=== PATIENT | female | born 1935 | race Caucasian/White ===

== ENCOUNTER → 2017-05-16 | Outpatient (CLI) | payer OTHER ==
[~2017-05-16] MED LIST: ALEVE220 MG PO; ASPIRIN EC81 M1; CALCIUM 500 +1 EAC5 PO; CRESTOR5 MG; ELIQUIS2.5 MG PO; FISH OIL 1,001000 M2 PO; K-DUR 20 MEQ T20 MEQ PO; LOSARTAN-HCTZ1 EAC2 PO; MOTION RELIEF25 MG PO; MULTAQ400 MG; NORCO 5-325 TA1 EACH PO; OMEGA-3100 MG; SIMVASTATIN40 MG PO; VERAPAMIL E.R240 M1 PO; VITAMIN D1000 UNI1 PO
--- NOTE | ~2017-05-16 | 2DMMODE ---
[facility] [address] [place] [address] 2 D/M-MODE ECHOCARDIOGRAM Name: CRISTÓBAL OWUSUJD Room #: REG [facility]#: [id number] Admission: 05/16/17 Attend Phys: Frank Clark Discharge: Date of : 31 Date of Service: 05/16/17 1207 Report #: [id number] THIS REPORT FOR: //name// APPROVED REPORT Study performed: 05/16/2017 11:52:50 EXAM: Comprehensive 2D, Doppler, and color-flow Echocardiogram Patient Location: Echo lab Status: routine BSA: 1.64 HR: 84 bpm BP: 160/79 mmHg Rhythm: Atrial Fibrillation Other Information Study Quality: Adequate Indications CAD Pre-cancer treatment. Hx: AFIB, CABG 2D Dimensions RVDd: 40.47 mm LVEF(%): 59.99 (>50%) IVSd: 10.19 (7-11mm) LVOT Diam: 20.48 (18-24mm) LVDd: 43.61 mm PWd: 9.53 (7-11mm) Ascending Ao: 28.16 (22-36mm) LVDs: 29.77 (25-40mm) Aortic Root: 28.37 mm IVC: 14.00 mm TAPSE: 1.20 (<1.7) Pink's LVEF: 59.99 % Volumes Left Atrial Volume (Systole) Single Plane 4CH: 57.75 mL Single Plane 2CH: 61.30 mL LA ESV Index: 39.00 mL/m2 Aortic Valve AoV Peak Raimundo.: 0.86 m/s AO Peak Gr.: 2.95 mmHg LVOT Max P.20 mmHg LVOT Max V: 0.74 m/s EDINSON Vmax: 2.85 cm2 Mitral Valve [facility] [place] [address] 2 D/M-MODE ECHOCARDIOGRAM Name: JOHANN OWUSU Room #: [facility]#: [id number] Admission: 05/16/17 Attend Phys: Frank Clark Discharge: Date of : 31 Date of Service: 05/16/17 1207 Report #: [id number] MV Decel. Time: 125.98 ms MV E Max Raimundo.: 0.94 m/s IVRT: 45.21 ms Pulmonary Valve PV Peak Raimundo.: 0.84 m/s PV Peak Gr.: 2.85 mmHg Tricuspid Valve TR Peak Raimundo.: 2.39 m/s RAP Estimate: 5.00 mmHg TR Peak Gr.: 24.82 mmHg PA Pressure: 29.00 mmHg Left Ventricle The left ventricle is normal size. There is normal left ventricular wall thickness. The left ventricular systolic function is normal. LVEF is 50-55%. This study is not technically sufficient to allow evaluation of the LV diastolic function due to atrial fibrillation. Right Ventricle Right ventricle is dilated. Right ventricle is hypokinetic. Atria Left atrium is dilated. Right atrium is dilated. Aortic Valve The Aortic valve is mildly sclerotic. No aortic regurgitation is present. There is no aortic valvular stenosis. Mitral Valve Mild mitral annular calcification. Moderate mitral regurgitation. No evidence of mitral valve stenosis. Tricuspid Valve The tricuspid valve is normal in structure. Severe tricuspid regurgitation. Pulmonic Valve The pulmonary valve is normal in structure. Mild pulmonic regurgitation. Great Vessels The aortic root is normal in size. The ascending aorta is normal in size. IVC is normal in size and collapses >50% with inspiration. Estimated PAP 29 mmHg. [facility] [address] [place] [address] 2 D/M-MODE ECHOCARDIOGRAM Name: JOHANN OWUSU Room #: [facility]#: [id number] Admission: 05/16/17 Attend Phys: Frank Clark Discharge: Date of : 31 Date of Service: 05/16/17 1207 Report #: [id number] Pericardium There is no pericardial effusion. <Conclusion> The left ventricle is normal size. LVEF is 50-55%. Right ventricle is dilated. Right ventricle is hypokinetic. The Aortic valve is mildly sclerotic. There is no aortic valvular stenosis. Mild mitral annular calcification. Moderate mitral regurgitation. The tricuspid valve is normal in structure. Severe tricuspid regurgitation. The pulmonary valve is normal in structure. Mild pulmonic regurgitation. There is no pericardial effusion. <ELECTRONICALLY SIGNED> By: Adolfo Leone MD 05/16/171206 06 06 Adolfo Leone MD /INF
== END ==
LOC: CV 10:36
DX: I08.1 Rheumatic disorders of both mitral and tricuspid valves (principal); I25.10 Atherosclerotic heart disease of native coronary artery without angina pectoris; C50.812 Malignant neoplasm of overlapping sites of left female breast; I48.2 Chronic atrial fibrillation; E78.5 Hyperlipidemia, unspecified; Z17.0 Estrogen receptor positive status [ER+]; Z95.1 Presence of aortocoronary bypass graft

== ENCOUNTER → 2019-07-29 | Outpatient (CLI) | payer OTHER | LOC: SJCVC 10:58 | DX: I48.19 Other persistent atrial fibrillation (principal); R94.31 Abnormal electrocardiogram [ECG] [EKG]; I48.0 Paroxysmal atrial fibrillation; I25.10 Atherosclerotic heart disease of native coronary artery without angina pectoris; I10 Essential (primary) hypertension; E78.5 Hyperlipidemia, unspecified; Z79.899 Other long term (current) drug therapy; Z82.49 Family history of ischemic heart disease and other diseases of the circulatory system; Z82.3 Family history of stroke ==

== ENCOUNTER 2021-02-06 08:20 | Inpatient (IN) | payer OTHER ==
[~2021-02-06] VITALS: Ht 160 cm; Wt 65.5 kg
[2021-02-06 08:33] VITALS: BP 132/77
[2021-02-06 09:02] LABS: BASOPHILS 0.6 % (0.0-2.0); EOSINOPHILS 0.1 % (0.0-3.0); HEMATOCRIT 43.4 % (37.0-47.0); HEMOGLOBIN 14.6 gm/dL (12.0-15.0); LYMPHOCYTES 5.3 % (24.0-44.0); MCH 32.1 pg (26.0-34.0); MCHC 33.6 g/dL (28.0-37.0); MCV 95.3 fL (80.0-100.0); MONOCYTES 6.3 % (1.0-8.0); PLATELET COUNT 157 thou/uL (150-400); POLYS 87.7 % (36.0-66.0); RBC 4.55 mil/uL (4.20-5.00)
[2021-02-06 09:14] LABS: POTASSIUM 3.7 mmol/L (3.5-5.1)
[2021-02-06 09:17] LABS: APTT 25.7 Seconds (24.5-32.8); PROTIME 10.9 Seconds (10.5-12.1)
[2021-02-06] MEDS ORDERED: ARIMIDEX1 MG PO (10:45)
[2021-02-06] MEDS ORDERED: MAGNESIUM250 M1 PO (10:46)
[2021-02-06] MEDS ORDERED: SIMVASTATIN80 MG PO (10:47)
--- NOTE | 2021-02-06 11:56 | NUR ---
CALLED FLOOR AT THIS TIME. RN WAS IN THE PROCESS OF D/C PT, STATED SHE WILL CALL BACK
[2021-02-06 12:19] VITALS: BP 136/74
[2021-02-06 12:35] VITALS: BP 148/77
[2021-02-06] MEDS ORDERED: PROLIA60 MG/1 ML SUBQ (13:29)
[2021-02-06 15:00] VITALS: BP 120/52
[2021-02-06 19:22] VITALS: BP 128/65
[2021-02-07] VITALS (8 sets, daily range): BP systolic 124–148; BP diastolic 43–86
--- NOTE | 2021-02-07 01:45 | NUR ---
ASSESSMENT COMPLETED. PLEASANT LADY. MAKES NEEDS KNOWN. VSS. ON / FOR COMFORT.WALKS TO THE BATHROOM WITH SBA. ENCOURAGED TO USE I/S.
--- NOTE | 2021-02-07 12:47 | EKG ---
[address] [place] [address] ELECTROCARDIOGRAM REPORT Name: JOHANN OWUSU Jackson Room #: 214-P [facility] IN .R.#: [id number] Admission: 02/06/21 Attend Phys: Silas Chappell MD Discharge: Date of : 33 Report #: [id number] [facility] ED Test Date: 2021-02-06 Test Time: 09:53:19 Pat Name: JOHANN OWUSU Department: Room: 214 Gender: F Quality Assurance Supervisor Final: ABDULLAHI : 1935 Requested By: Kenia Harris Order Number: [id number] MD: Jerson Flores Measurements Intervals [place] Rate: 82 P: RI: QRS: 3 QRSD: 100 T: 150 QT: 377 QTc: 441 Interpretive Statements Atrial fibrillation Nonspecific ST and T wave abnormality Compared to ECG 10/29/2012 09:12:46 Sinus rhythm no longer present Electronically Signed On 02-07-2021 12:47:05 CDT by Jerson Flores [email or web address] <ELECTRONICALLY SIGNED> By: Jerson Flores MD, [facility] 02/07/21 1247 0953 0953 Jerson Flores MD, FAC /EPI
--- NOTE | 2021-02-07 12:47 | EKG ---
[address] [address] ELECTROCARDIOGRAM REPORT Name: JOHANN OWUSU Jackson Room #: 214-[facility] IN M.R.#: [id number] Admission: 02/06/21 Attend Phys: Silas Chappell MD Discharge: Date of : 33 Report #: [id number] [facility] ED Test Date: 2021-02-06 Test Time: 09:53:19 Pat Name: JOHANN OWUSU Department: Room: 214 P Gender: F Income Tax Consultant: ABDULLAHI : 1935 Requested By: Kenia Harris Order Number: [id number] MD: Jerson Flores Measurements Intervals [place] Rate: 82 P: AL: QRS: 3 QRSD: 100 T: 150 QT: 377 QTc: 441 Interpretive Statements Atrial fibrillation Nonspecific ST and T wave abnormality Compared to ECG 10/29/2012 09:12:46 Sinus rhythm no longer present Electronically Signed On 02-07-2021 12:46:44 CDT by Jerson Flores [email or web address] <ELECTRONICALLY SIGNED> By: Jerson Flores MD, [facility] 02/07/21 1246 0953 0953 Jerson Flores MD, FACC /EPI
[2021-02-08 04:45] VITALS: BP 132/58; BP 142/58
[2021-02-08 08:15] VITALS: BP 162/90
--- NOTE | 2021-02-08 11:15 | 2DMMODE ---
[facility] [place] [address] 2 D/M-MODE ECHOCARDIOGRAM Name: JOHANN OWUSU Room #: 214-P ADM IN M.R.#: [id number] Admission: 02/06/21 Attend Phys: Silas Chappell MD Discharge: Date of : 31 Report #: [id number] THIS REPORT FOR: cc: Amarilis Man MD, Stany A. MD Lammoglia, Francisco J. MD ~ APPROVED REPORT Study performed: 02/08/2021 10:12:09 EXAM: Comprehensive 2D, Doppler, and color-flow Echocardiogram Patient Location: Bedside Room #: 214 Status: routine BSA: 1.70 HR: 84 bpm BP: 162/90 mmHg Rhythm: Atrial Fibrillation Other Information Study Quality: Good Indications Pre-Chemo Atrial Fibrillation CAD Syncope Hypertension/HDD 2D Dimensions RVDd: 37.19 mm IVSd: 9.63 (7-11mm) LVOT Diam: 17.65 (18-24mm) LVDd: 42.32 mm PWd: 8.90 (7-11mm) Ascending Ao: 26.51 (22-36mm) LVDs: 31.53 (25-40mm) Left Atrium: 41.61 (27-40mm) Aortic Root: 29.27 mm IVC: 20.00 mm Volumes Left Atrial Volume (Systole) Single Plane 4CH: 80.24 mL Single Plane 2CH: 52.50 mL LA ESV Index: 41.00 mL/m2 Aortic Valve [facility] [address] [place] [address] 2 D/M-MODE ECHOCARDIOGRAM Name: JOHANN OWUSU Room #: 214-P [facility] IN [facility]#: [id number] Admission: 02/06/21 Attend Phys: Silas Chappell MD Discharge: Date of : 33 Report #: [id number] AoV Peak Raimundo.: 1.14 m/s AO Peak Gr.: 5.23 mmHg LVOT Max P.75 mmHg LVOT Max V: 0.83 m/s EDINSON Vmax: 1.77 cm2 Pulmonary Valve PV Peak Raimundo.: 0.85 m/s PV Peak Gr.: 2.90 mmHg Tricuspid Valve TR Peak Raimundo.: 3.09 m/s TR Peak Gr.: 38.25 mmHg PA Pressure: 48.00 mmHg Left Ventricle The left ventricle is normal size. There is normal LV segmental wall motion. There is normal left ventricular wall thickness. The left ventricular systolic function is normal. The left ventricular ejection fraction is within the normal range. LVEF is 55-60%. This study is not technically sufficient to allow evaluation of the LV diastolic function due to atrial fibrillation. Right Ventricle The right ventricle is normal size. The right ventricular systolic function is normal. Atria The left atrium size is normal. The right atrium size is normal. Aortic Valve The aortic valve is normal in structure. No aortic regurgitation is present. There is no aortic valvular stenosis. Mitral Valve The mitral valve is normal in structure. Mild mitral regurgitation. No evidence of mitral valve stenosis. Tricuspid Valve The tricuspid valve is normal in structure. There is moderate tricuspid regurgitation. Estimated PAP 48 mmHg. There is moderate pulmonary hypertension. Pulmonic Valve The pulmonary valve is normal in structure. Trace pulmonic regurgitation. [facility] [address] [place] [place] [address] 2 D/M-MODE ECHOCARDIOGRAM Name: JOHANN OWUSU Jackson Room #: 214-P [facility] IN [facility]#: [id number] Admission: 02/06/21 Attend Phys: Silas Chappell MD Discharge: Date of : 33 Report #: [id number] Great Vessels The aortic root is normal in size. IVC is dilated and collapses <50% with inspiration. Pericardium There is no pericardial effusion. <Conclusion> The left ventricle is normal size. LVEF is 55-60%. The left atrium size is normal. The aortic valve is normal in structure. The mitral valve is normal in structure. Mild mitral regurgitation. The tricuspid valve is normal in structure. There is moderate tricuspid regurgitation. Estimated PAP 48 mmHg. There is moderate pulmonary hypertension. The pulmonary valve is normal in structure. Trace pulmonic regurgitation. The aortic root is normal in size. There is no pericardial effusion. <ELECTRONICALLY SIGNED> By: Adolfo Leone MD 02/08/21 1114 1114 1114 Adolfo Leone MD /INF
--- NOTE | 2021-02-08 14:30 | NUR ---
Assumed care of pt this AM. Pt is A&O x4, on RA. AFIB on the monitor. Denies any chest pain. Pt standby assist to toilet, ambulates better with walker per PT. Lidocaine patch on lt back/side for pain. Pt up to chair today w/ daughter visiting. Will continue to assess pt needs throughout rest of shift.
--- NOTE | 2021-02-08 15:42 | NUR ---
SNF referral faxed and called to [facility] of OP. They will check her ins plan to see if they are in network. The pt does not feel she is able to return directly home at nv. [facility] may have a bed available tomorrow. Will need ins auth.
--- NOTE | 2021-02-08 15:45 | NUR ---
Met with patient and dtr at bedside. Patient admits with pneumothorx, rib fx post fall. Patient reports she lives with spouse who has dementia. Patient reports he is safe at home without her at this time. Dtr reports she will bring food and look after him. Patient reports all needs on one level in home. Approx 2-3 steps to enter home. She reports she drives, spouse does not drive. She does all cooking, cleaning for the home. She was independent with adls officer captain. She reports cont pain and weakness. She and dtr interested in post acute care. Gave skilled [employer] list. Reviewed list and referral to [facility] for review. Second choice either [facility] or [facility]. [facility] following.
[2021-02-08 16:20] VITALS: BP 150/102
[2021-02-08 20:15] VITALS: BP 147/77
[2021-02-09 04:45] VITALS: BP 139/57
--- NOTE | 2021-02-09 06:29 | NUR ---
PATIENTS CARES WERE ASSUMED AT SHIFT CHANGE.PATIENT WAS ASSESSED AND MEDS WERE PASSED. PATIENT HAD AN UNEVENTFUL NIGHT THIS SHIFT AND LAST. PATIENT WANT TO WORK WITH PT IN HOPES TO GET HOME QUICKER. ROUNDS WERE DONE. THE BED ALARM IS ON THE BED IS IN A LOW AND LOCKED POSITION
[2021-02-09 08:17] VITALS: BP 175/85
[2021-02-09 15:20] VITALS: BP 157/83
--- NOTE | 2021-02-09 16:37 | NUR ---
[facility] with no bed until possibly monday. Met with patient and dtr. they report patient doing better and feels she could dc home with home health care. Reviewed home health care. They have no preference. Referral to [facility] home health care. Zuri newsome to meet with patient in am.
--- NOTE | 2021-02-09 17:57 | NUR ---
ASSUMED CARE SHIFT CHANGE. VSS. HR ELEVATED WITH ACTIVITY- PHYSICIANS AWARE. O2 SATS WNL RA. CXR THIS SHIFT REFER TO RESULTS. DTR AT BEDSIDE UPDATED ON POC. PT WORKED WITH PHYS THERAPY AND OT EDNA WELL. PLAN FOR POSSIBLE DC IN AM WITH HOME HEALTH. DENIES NEEDS CURRENTLY. CONT POC WILL PASS REPORT TO VANDANA BAXTER.
[2021-02-09 19:39] VITALS: BP 139/62
--- NOTE | 2021-02-10 01:25 | NUR ---
ASSUMED PT CARE AT 1900, ASSESSMENTS CHARTED, AFIB ON TELE, HR ELEVATED UPTO 160S WITH ACTIVITY, CONTROLLED AT REST, C/O RIB PAIN, TRAMADOL GIVEN WITH RELIEF, PT ABLE TO HAVE A BM THIS SHIFT, NO NEEDS AT THIS TIME, PLAN FOR DC IN TODAY WITH H&H, WILL CONTINUE TO FOLLOW PER POC
[2021-02-10 04:30] VITALS: BP 140/64
[2021-02-10 06:48] VITALS: BP 156/68
[2021-02-10 07:15] VITALS: BP 156/76
--- NOTE | 2021-02-10 12:57 | NUR ---
spoke with dtr. Patient not to discharge today due to HR. Gardenia dhillon [facility] met with patient and dtr. Spoke with Yue with [facility] patient will need a walker for home. Patient will script for walker.
[2021-02-10 16:40] VITALS: BP 144/46
--- NOTE | 2021-02-10 16:42 | LINQ ---
[facility] [address] [place] [address] LINQ PROCEDURE REPORT Name: JOHANN OWUSU Room #: 214-P [facility] IN ..#: [id number] Admission: 02/06/21 Attend Phys: Silas Chappell MD Discharge: Date of : 33 Report #: [id number] THIS REPORT FOR: cc: Amarilis Man MD, Stany A. MD Lammoglia, Francisco J. MD ~ APPROVED REPORT Patient Location: In-Patient Room #: Stress Nurse: LINQ PLACEMENT 02/09/2021 MODEL # [id number] SERIAL # [id number] AQUATIC PERFORMER: [employer] IMPLANT DATE: 02/09/2021 PLACEMENT: Vishal Kay SQ Status: Implant VT: 330ms 16 beats BEENA: 2000ms 8 beats ASYSTOLE: 3.0 s Indications: Syncope Brief description procedure: After informed sent was obtained assessment was brought to the cardiac catheterization laboratory prepped and hold. Left chest was prepped and draped in usual sterile manner. Using 1% lidocaine and a 25-gauge needle a small wheal was raised along the proposed incision site. Utilizing a 25-gauge spinal needle the proposed insertion tract was anesthetized. An 11 blade was then used to make a small incision and with sharp and blunt dissection a pocket tract was developed. Utilizing the deployment tool the device was then deployed without difficulty. Subcutaneous tissue was sewn with 2 simple erupted sutures and the skin was sewn with 3-0 Vicryl in subcuticular stitch. Dermabond Steri-Strips 4 x 4 OpSite were utilized. Recorded P waves were satisfactory and in range. There were no complications patient tolerated procedure well [facility] [address] [place] [address] LINQ PROCEDURE REPORT Name: JOHANN OWUSU Room #: 214-P [facility] IN [facility]#: [id number] Admission: 02/06/21 Attend Phys: Silas Chappell MD Discharge: Date of : 33 Report #: [id number] Conclusion 1. Successful insertion of a implantable loop recorder 2. Proceed per standard post insertion protocol <ELECTRONICALLY SIGNED> By: Adolfo Leone MD 02/10/211641 41 41 Adolfo Leone MD /INF
--- NOTE | 2021-02-10 17:17 | NUR ---
ASSESSMENT CHARTED - MEDS PER AUG - GIVEN TORODOL X 1 DOSE FOR CO'S OF PAIN WITH GOOD RELIEF. NO CO'S OF NASUEA. UP IN ROOM TO BATHROOM WITH STBY ASSIST. SEEN BY OPHYS AND OCC THERAPY THIS SHIFT - HR ELEVATED WHEN UP THIS AM - GIVEN TOPROL PT AND 5 MGS IV HR HAS REMAINED BELOW 120 WITH AMBULATION. EDNA DIET AND FLUIDS. NO CO'S AT THE PRESENT TIME.
[2021-02-10 17:40] VITALS: BP 144/46
[2021-02-10 20:08] VITALS: BP 142/67
--- NOTE | 2021-02-11 03:26 | NUR ---
assumed pt care at 1900, awake, alert abd oriented, afib with hr controlled in the 80s, upto 120s with activity, denies pain this shift, meds given as per aug, plan to dc home today
[2021-02-11 04:41] VITALS: BP 149/66
[2021-02-11] MEDS ORDERED: VERAPAMIL E.R240 M1 PO (08:00)
[2021-02-11] MEDS ORDERED: METOPROLOL SUCC25 M1 PO (08:00)
[2021-02-11 08:09] VITALS: BP 143/96
[2021-02-11 11:00] VITALS: BP 144/46
--- NOTE | 2021-02-11 11:02 | NUR ---
Dc home today with HH. Zuri Jeronimo has confirmed and will see the pt tomorrow. Provider [facility] has issued a rwalker to the pt for dc home today. No other needs noted.
[2021-02-11 12:19] VITALS: BP 133/74
[2021-02-11] MEDS ORDERED: TRAMADOL 50 MG50 MG PO (12:32)
[2021-02-11] MEDS ORDERED: MIRALAX17 GM PO (12:32)
[2021-02-11] MEDS ORDERED: LIDOPATCH1 EACH TRANSDERM (12:32)
[2021-02-11] MEDS ORDERED: COLACE 100 MG100 MG PO (12:32)
[2021-02-11 13:22] VITALS: BP 144/46
--- NOTE | 2021-02-11 14:13 | NUR ---
PT STATED VERBAL UNDERSTANDING OF THE DISCHARGE PROCESS AT BEDSIDE, tELE BOX AND iv REMOVED, NO CONCERNS AT DICHARGED TIME.
== END 2021-02-11 15:40 | disposition home health service (06) | DRG 260 ==
LOC: ER 08:20 → EROBS 11:20 → 2N 11:20
PROVIDERS: Emergency Medicine; ADMIT Surgery; ATTEND Surgery
PROC: 0JH632Z Insertion of Monitoring Device into Chest Subcutaneous Tissue and Fascia, Percutaneous Approach (ICD-10-PCS; principal; 2021-02-09)
DX: I48.21 Permanent atrial fibrillation (principal); S27.2XXA Traumatic hemopneumothorax, initial encounter; J96.01 Acute respiratory failure with hypoxia; S22.32XA Fracture of one rib, left side, initial encounter for closed fracture; S27.329A Contusion of lung, unspecified, initial encounter; I95.1 Orthostatic hypotension; Z20.822 Contact with and (suspected) exposure to COVID-19; I10 Essential (primary) hypertension; E78.5 Hyperlipidemia, unspecified; I25.10 Atherosclerotic heart disease of native coronary artery without angina pectoris; I08.1 Rheumatic disorders of both mitral and tricuspid valves; Z79.01 Long term (current) use of anticoagulants; Z85.3 Personal history of malignant neoplasm of breast; Z98.42 Cataract extraction status, left eye; Z98.41 Cataract extraction status, right eye; Z90.12 Acquired absence of left breast and nipple; Z95.1 Presence of aortocoronary bypass graft; W18.39XA Other fall on same level, initial encounter; Y93.89 Activity, other specified; Y92.89 Other specified places as the place of occurrence of the external cause; Y99.8 Other external cause status
CPT/HCPCS: 10081

== ENCOUNTER 2021-05-21 12:52 | Inpatient (IN) | payer OTHER ==
[~2021-05-21] VITALS: Ht 152.4 cm; Wt 63.5 kg
[~2021-05-21 12:52] MED LIST changes: +ARIMIDEX1 MG PO; +COLACE 100 MG100 MG PO; +LIDOPATCH1 EACH TRANSDERM; +MAGNESIUM250 M1 PO; +METOPROLOL SUCC25 M1 PO; +MIRALAX17 GM PO; +PROLIA60 MG/1 ML SUBQ; +SIMVASTATIN80 MG PO; +TRAMADOL 50 MG50 MG PO
[2021-05-21 12:53] VITALS: BP 115/46
[2021-05-21 14:29] LABS: ABSOLUTE NEUTROPHILS 5.7 thou/uL (1.4-8.2); BASOPHILS 0.5 % (0.0-2.0); EOSINOPHILS 0.5 % (0.0-3.0); HEMATOCRIT 42.4 % (37.0-47.0); HEMOGLOBIN 13.9 gm/dL (12.0-15.0); LYMPHOCYTES 9.2 % (24.0-44.0); MCH 31.1 pg (26.0-34.0); MCHC 32.7 g/dL (28.0-37.0); MCV 95.3 fL (80.0-100.0); MONOCYTES 6.9 % (1.0-8.0); PLATELET COUNT 191 thou/uL (150-400); POLYS 82.9 % (36.0-66.0); RBC 4.45 mil/uL (4.20-5.00); RDW 14.2 % (10.5-14.5); WBC 6.9 thou/uL (4.0-11.0)
[2021-05-21 17:54] LABS: URINE BILIRUBIN NEGATIVE (Negative); URINE BLOOD TRACE (Negative); URINE CLARITY CLEAR; URINE COLOR YELLOW; URINE GLUCOSE-RANDOM* NEGATIVE (Negative); URINE KETONES TRACE (Negative); URINE NITRITE-REFLEX NEGATIVE (Negative); URINE PROTEIN (DIPSTICK) NEGATIVE (Negative); URINE UROBILINOGEN 0.2 E.U./dl (0.2-1.0)
[2021-05-21 18:09] LABS: URINE LEUKOCYTES-REFLEX 1+ (Negative)
[2021-05-21 18:18] LABS: SQUAMOUS 0-3 Few /LPF (0-3)
[2021-05-21 18:19] LABS: BACTERIA-REFLEX 1-9 Few /HPF (None Seen); CASTS None Seen /LPF (None Seen); CRYSTALS None Seen /LPF (None Seen); URINE RBC 1-2 Rare /HPF (NONE SEEN); URINE WBC-REFLEX 0-5 Rare /HPF (0-5)
[2021-05-22 03:37] VITALS: BP 153/65
[2021-05-22 05:59] LABS: HEMATOCRIT 44.2 % (37.0-47.0); HEMOGLOBIN 14.4 gm/dL (12.0-15.0); MCH 30.7 pg (26.0-34.0); MCHC 32.5 g/dL (28.0-37.0); MCV 94.5 fL (80.0-100.0); RBC 4.68 mil/uL (4.20-5.00); RDW 13.6 % (10.5-14.5); WBC 5.4 thou/uL (4.0-11.0)
[2021-05-22 06:28] LABS: CALCIUM 8.9 mg/dL (8.5-10.1); CREATININE 0.8 mg/dL (0.6-1.0)
--- NOTE | 2021-05-22 11:56 | EKG ---
[address] [place] [address] ELECTROCARDIOGRAM REPORT Name: CRISTÓBAL OWUSUJD Paz Room #: 170-2 ADM IN M.R.#: [id number] Admission: 05/21/21 Attend Phys: Robert Tovar Discharge: Date of : 33 Report #: [id number] [facility] ED Test Date: 2021-05-21 Test Time: 13:03:34 Pat Name: JOHANN OWUSU Department: Room: 170 Gender: F Cleaning Manager: ALFREDO : 1935 Requested By: Zach England Order Number: [id number] MD: Jerson Flores Measurements Intervals [place] Rate: 52 P: 0 FL: QRS: 48 QRSD: 100 T: 171 QT: 534 QTc: 497 Interpretive Statements Atrial flutter versus atrial tachycardia with a controlled ventricular response RSR' in V1 or V2, probably normal variant Nonspecific ST and T wave abnormality Borderline prolonged QT interval Compared to ECG 02/06/2021 09:53:19 Heart rate has slowed Electronically Signed On 05-22-2021 11:56:40 PRESS CLIPPINGS CUTTER AND PASTER by Jerson Flores [email or web address] <ELECTRONICALLY SIGNED> By: Jerson Flores MD, FAC 05/22/21 1156 1303 1303 Jerson Flores MD, FAC /EPI
[2021-05-22 15:39] VITALS: BP 138/50
[2021-05-22 16:38] VITALS: BP 142/52
--- NOTE | 2021-05-22 17:51 | NUR ---
[age] YEAR OLD FEMALE ADMITTED TO [facility] ROOM 448. PT WAS BROUGHT INTO THE ER PER DAUGHTER DUE TO INCREASE SOA. PT ALERT AND ORIENTED TIMES THREE WITH PERIODS OF CONFUSION. VSS. PT DENIES PAIN AT THIS TIME. PT UP TO RESTROOM WITH STANDBY ASSIST. PT DAUGHTER AT BEDSIDE DURING ADMISSION ASSESSMENT. WILL CONTINUE TO MONITOR.
[2021-05-22 20:43] VITALS: BP 156/82
--- NOTE | 2021-05-23 03:27 | NUR ---
ASSUMED CARE OF PT AT 1900. PT AT START OF SHIFT WAS A/O X4 WITH SOME FORGETFULNESS. THE NIGHT PROGRESSED PT BECAME MORE CONFUSED AND IS CURRENTLY A/O X1 AND IS IMPULSIVE AND AT TIMES AGRESSIVE. SERGING MACHINE OPERATOR NOTIFIED. ORDERS GIVEN. MOVED PT CLOSER TO NURSES STATION FOR SAFETY PRECAUTION WITH A MORE SENSITIVE BED ALARM SET. CALLED DAUGHTER THIS NIGHT AT 2200 TO INFORM HER OF THE MOVE. NO ANSWER. PT REMAINS ON RA. VSS. SOB WITH EXERTION. SBA WITH WALKER TO THE BR. MEDICATIONS GIVEN PER AUG. PRN ANXIETY MEDICATION GIVEN DIRECTED. FALL PRECAUTIONS IN PLACE WITH FREQUENT CHECKS. CALL LIGHT IS WITHIN REACH.
[2021-05-23 07:17] VITALS: BP 153/82
[2021-05-23 08:51] LABS: CALCIUM 8.5 mg/dL (8.5-10.1); CREATININE 0.8 mg/dL (0.6-1.0)
--- NOTE | 2021-05-23 10:29 | EKG ---
[place] [address] [employer] [employer] [place] [address] ELECTROCARDIOGRAM REPORT Name: JOHANN OWUSU Room #: 435- ADM IN M.R.#: [id number] Admission: 05/21/21 Attend Phys: Robert Tovar Discharge: Date of : 31 Report #: [id number] [facility] Test Date: 2021-05-23 Test Time: 08:00:43 Pat Name: JOHANN OWUSU Department: Room: [facility] Gender: F Book Author: AGNES : 1935 Requested By: Jerson Flores Order Number: [id number] MD: Jerson Flores Measurements Intervals [place] Rate: 57 P: 14 IA: 176 QRS: 29 QRSD: 99 T: 192 QT: 604 QTc: 589 Interpretive Statements Sinus bradycardia Probable left atrial enlargement LVH with secondary repolarization abnormality Prolonged QT interval Compared to ECG 05/21/2021 13:03:34 Sinus rhythm has replaced probable atrial flutter Electronically Signed On 05-23-2021 10:29:25 SHIPPING ORDER CLERK by Jerson Flores [email or web address] <ELECTRONICALLY SIGNED> By: Jerson Flores MD, [facility] 05/23/21 1029 9 9 Jerson Flores MD, [facility] /EPI
--- NOTE | 2021-05-23 11:34 | NUR ---
A/O X 1 SELF. ROOM AIR, STAND BY WITH WALKER, RIGHT FOREARM IV SALINE LOCKED, CONT B/B, AFIB ON TELE, BILATERAL LUNGS COARSE, NO PAIN. THORACENTESIS TOMORROW. DAUGHTER AT BEDSIDE. BED ALARM ON. HAS TRIED TO GET OUT OF BED ON HER OWN A FEW TIMES.
[2021-05-23 15:54] VITALS: BP 143/63
[2021-05-23 19:05] VITALS: BP 104/40
[2021-05-24 07:12] VITALS: BP 132/68
[2021-05-24 08:45] LABS: APTT 27.9 Seconds (24.5-32.8); INR 1.05; PROTIME 11.4 Seconds (10.5-12.1)
--- NOTE | 2021-05-24 09:02 | EKG ---
[address] [place] [address] ELECTROCARDIOGRAM REPORT Name: FRANCOISECRISTÓBALJD Paz Room #: 435- ADM IN M.R.#: [id number] Admission: 05/21/21 Attend Phys: Robert Tovar Discharge: Date of : 31 Report #: [id number] [facility] Test Date: 2021-05-24 Test Time: 08:55:12 Pat Name: JOHANN OWUSU Department: Room: [facility] Gender: F Entry Level Account Representative: PRASANNA : 1935 Requested By: Jerson Flores Order Number: [id number] MD: Jerson Flores Measurements Intervals [place] Rate: 53 P: 20 HI: 149 QRS: 9 QRSD: 94 T: 103 QT: 631 QTc: 593 Interpretive Statements Sinus bradycardia Nonspecific T abnormalities Prolonged QT interval Compared to ECG 05/23/2021 08:00:43 No significant change was found Electronically Signed On 05-24-2021 9:02:28 HOTBED TRANSFER OPERATOR by Jerson Flores [email or web address] <ELECTRONICALLY SIGNED> By: Jerson Flores MD, [facility] 05/24/21901 0855 4 Jerson Flores MD, FACC /EPI
--- NOTE | 2021-05-24 09:06 | NUR ---
ASSUMED PT CARE THIS AM. PT IS ALERT & ORIENTED X3. PT HAS IV SITE ON RFA SALINE LOCKED AND L LIMB ALERT. PT IS ON ROOM AIR. PT HAS TELE MONITOR ON. PT HAS BEEN NPO THIS AM. CALLED PT DAUGHTER/DPOA FOR A TELEPHONE CONSENT FOR THORACENTESIS TODAY AND ORDERED LAB COAGULATION PER PROTOCOL AND ORDERED. CONFIRMED WITH DR AGUIRRE THIS MORNING WELL. PT DAUGHTER AT THE BEDSIDE. WILL CONTINUE TO MONITOR PT. FOLLOW POC.
--- NOTE | 2021-05-24 09:17 | NUR ---
86-year-old female came to ED with complaints of SOA. had a fall in January where she suffered left rib fractures and a small hemothorax and small pneumothorax. HX of past medical history of coronary artery disease, fall, hemothorax, pneumothorax, atrial fibrillation, hypertension, and hyperlipidemia. CT shows a small left pleural effusion. Chart review. Cm visited with Haseeb and her daughter Ahsan at bedside. Intro to cm and rip. Prior to hospital she been living alone since her Ha . Main level home with laundry on main level. No stairs. Has a walker. Do not drive much. Daughter brings over food and just must warm it up. Possible will stay at my daughters for a while be for going home or my daughter will stay with me. Going to start looking into Jail per daughter Ahsan. Cm left senior blue book for resources outside the hospital. Going for thoracentesis today.
[2021-05-24 14:19] LABS: BF NUCLEATED CELLS 289 /mm3; BF RBC 517 /mm3
[2021-05-24 14:23] LABS: CLARITY CLEAR; COLOR YELLOW; TOTAL VOLUME 60 mL
--- NOTE | 2021-05-24 14:48 | 2DMMODE ---
[facility] [place] [address] 2 D/M-MODE ECHOCARDIOGRAM Name: JOHANN OWUSU Jackson Room #: 435-P ADM IN M.R.#: [id number] Admission: 05/21/21 Attend Phys: Robert Tovar Discharge: Date of : 31 Report #: [id number] THIS REPORT FOR: cc: Amarilis Man MD, Stany A. MD Lundgren, Craig H. MD [facility] ~ APPROVED REPORT Study performed: 05/24/2021 11:33:07 EXAM: Comprehensive 2D, Doppler, and color-flow Echocardiogram Patient Location: Bedside Room #: [facility] Status: routine BSA: 1.60 HR: 45 bpm BP: 132/68 mmHg Rhythm: Atrial Fibrillation Other Information Study Quality: Good Indications Pulmonary Hypertension Atrial Fibrillation Dyspnea Hypertension/HDD 2D Dimensions IVSd: 8.76 (7-11mm) LVOT Diam: 18.88 (18-24mm) LVDd: 45.34 mm PWd: 8.77 (7-11mm) Ascending Ao: 28.24 (22-36mm) LVDs: 32.36 (25-40mm) Left Atrium: 41.59 (27-40mm) Aortic Root: 29.07 mm IVC: 20.00 mm Tricuspid Valve TR Peak Raimundo.: 3.08 m/s TR Peak Gr.: 37.95 mmHg PA Pressure: 48.00 mmHg Left Ventricle The left ventricle is normal size. There is normal LV segmental wall motion. There is normal left ventricular wall thickness. The left [facility] [address] [place] [address] 2 D/M-MODE ECHOCARDIOGRAM Name: JOHANN OWUSU Jackson Room #: 435-P ADM IN M.R.#: [id number] Admission: 05/21/21 Attend Phys: Robert Jim Discharge: Date of : 31 Report #: [id number] ventricular systolic function is normal. The left ventricular ejection fraction is within the normal range. LVEF is 50-55%. This study is not technically sufficient to allow evaluation of the LV diastolic function due to atrial fibrillation. Right Ventricle Right ventricle is dilated. Right ventricular systolic function is grossly normal. Atria Left atrium is dilated. Right atrium is dilated. Aortic Valve The aortic valve is mildly calcified, trileaflet. No aortic regurgitation is present. There is no aortic valvular stenosis. Mitral Valve The mitral valve is normal in structure. Mild to moderate mitral regurgitation. No evidence of mitral valve stenosis. Tricuspid Valve The tricuspid valve is normal in structure. Severe tricuspid regurgitation. Estimated pulmonary artery pressure of 48mmHg. Pulmonic Valve The pulmonary valve is normal in structure. Great Vessels The aortic root is normal in size. IVC is dilated and collapses >50% with inspiration. Pericardium There is no pericardial effusion. <Conclusion> The left ventricular systolic function is normal. There is normal LV segmental wall motion. LVEF is 50-55%. Right atrium and ventricle are dilated. The aortic valve is mildly calcified, trileaflet. No aortic regurgitation or stenosis The mitral valve is normal in structure. Mild to moderate mitral regurgitation. Severe tricuspid regurgitation. Estimated pulmonary artery pressure [facility] [address] [place] [address] 2 D/M-MODE ECHOCARDIOGRAM Name: JOHANN OWUSU Room #: 435-P [facility] IN .R.#: [id number] Admission: 05/21/21 Attend Phys: Robert Jim Discharge: Date of : 31 Report #: [id number] of 48mmHg. No pericardial effusion <ELECTRONICALLY SIGNED> By: Jerson Flores MD, [facility] 05/24/21 1448 144 Jerson Flores MD, FACC /INF
[2021-05-24 15:13] LABS: BF MACROPHAGE 18 %; BF NEUTROPHILS 14 %; SOURCE THORACENTESIS
[2021-05-24 16:52] VITALS: BP 119/64
[2021-05-24 18:00] LABS: HEMATOCRIT 50.1 % (37.0-47.0); MCHC 32.7 g/dL (28.0-37.0); MCV 94.7 fL (80.0-100.0); RBC 5.29 mil/uL (4.20-5.00); WBC 9.5 thou/uL (4.0-11.0)
[2021-05-24 18:03] LABS: HEMOGLOBIN 16.4 gm/dL (12.0-15.0)
[2021-05-24 18:08] LABS: CALCIUM 8.6 mg/dL (8.5-10.1); CREATININE 0.9 mg/dL (0.6-1.0); MAGNESIUM 1.7 mg/dL (1.8-2.4)
[2021-05-24 20:18] VITALS: BP 176/70
--- NOTE | 2021-05-24 23:58 | NUR ---
PT ALERT AND ORIENTED X 1, CONFUSED. 02 ON AT 2L PER NC CONT. RIGHT BACK BANDAID INTACT WITH SMALL AMT BLOOD NOTED. PT SOB WITH ACTIVITY. PT DENIES PAIN OR DISCOMFORT. BED ALARM ON FOR SAFETY. PT APPEARS TO BE SLEEPING ON HOURLY ROUNDS.
[2021-05-25 01:52] VITALS: BP 152/64
[2021-05-25 08:18] VITALS: BP 133/53
--- NOTE | 2021-05-25 10:13 | NUR ---
ASSUMED PT CARE THIS AM. HOLD AMIODARONE AND METOPROLOL THIS AM PER CARDIOLOGY AND INFORMED ABOUT HR. PT HAS IV SITE ON RFA SALINE LOCKED AND L LIMB ALERT. PT IS ON ROOM AIR AND PRN 2L FOR COMFORT AND SOB. PER CARDIOLOGY STANDPOINT OK FOR DC AND JUST TO FOLLOW UP. WILL CONTINUE TO MONITOR PT. FOLLOW POC.
[2021-05-25] MEDS ORDERED: DEMADEX20 MG PO (11:55)
[2021-05-25] MEDS ORDERED: VERAPAMIL ER240 M1 PO (11:55)
[2021-05-25 12:10] LABS: SOURCE THORACENTESIS
[2021-05-25 12:14] VITALS: BP 133/53
--- NOTE | 2021-05-25 12:25 | NUR ---
Discussed during los, dc home today with radha nunes is able to accept for home health needs.
--- NOTE | 2021-05-27 16:06 | PATH ---
[facility] [address] [place] [address] PATHOLOGY RPT PROCEDURE Name: JOHANN OWUSU Room #: 435-P [facility] IN [facility]#: [id number] Admission: 05/21/21 Date of : 31 Discharge: 05/25/21 Report #: [id number] Path Case #: [id number] Note [facility] Accession Number: [id number] TESTS RESULT FLAG UNITS REF RANGE LAB Clinician Provided Cytology Information No. of containers..01 Other (Miscellaneous) Source: THORACENTESIS DIAGNOSIS: THORACENTESIS NEGATIVE FOR MALIGNANT CELLS. MESOTHELIAL CELLS AND SCANT ACUTE INFLAMMATION. Signed out by: Lissette Cuevas MD, Pathologist NPI- [id number] Performed by: Shante Cook, Recruitment Intern ([facility]) Gross description: 01 11ML, YELLOW, CLEAR /LCS 05/25/2021 0259 Local FLAG LEGEND: L-Low Normal,H-High Normal,LL-Alert Low,HH-Alert High <-Panic Low,>-Panic High,A-Abnormal,AA-Critical Abnormal Performed at: [address] [place] [address] Carlos Ho MD, [address] [id number], Specimen Comment: REPORT SENT TO DR MCKENZIE Performed at: [address], [place], [place] [id number] MD Carlos Ho MD Phone: [phone]
[2021-05-31 14:07] LABS: BODY FLUID ALBUMIN 2.1 g/dL (Not Estab.); BODY FLUID AMYLASE 37 U/L (()); BODY FLUID GLUCOSE 116 mg/dL (()); BODY FLUID LDH 109 IU/L (()); BODY FLUID PROTEIN 2.8 g/dL (())
== END 2021-05-25 13:05 | disposition home health service (06) | DRG 291 ==
LOC: ER 12:52 → EROBS 20:16 → 4S 20:16
PROVIDERS: Internal Medicine; Nurse Practitioner; Nurse Practitioner Family; ADMIT Hospitalist; ATTEND Hospitalist
PROC: 0W9B3ZZ Drainage of Left Pleural Cavity, Percutaneous Approach (ICD-10-PCS; principal; 2021-05-24)
DX: I11.0 Hypertensive heart disease with heart failure (principal); J96.01 Acute respiratory failure with hypoxia; I50.33 Acute on chronic diastolic (congestive) heart failure; J91.8 Pleural effusion in other conditions classified elsewhere; J98.11 Atelectasis; I27.20 Pulmonary hypertension, unspecified; E87.6 Hypokalemia; I48.0 Paroxysmal atrial fibrillation; Z20.822 Contact with and (suspected) exposure to COVID-19; I25.10 Atherosclerotic heart disease of native coronary artery without angina pectoris; E78.5 Hyperlipidemia, unspecified; R53.81 Other malaise; K59.00 Constipation, unspecified; E83.42 Hypomagnesemia; M81.0 Age-related osteoporosis without current pathological fracture; Z79.899 Other long term (current) drug therapy; Z85.3 Personal history of malignant neoplasm of breast; Z90.10 Acquired absence of unspecified breast and nipple; Z83.3 Family history of diabetes mellitus; Z82.49 Family history of ischemic heart disease and other diseases of the circulatory system; Z80.41 Family history of malignant neoplasm of ovary
CPT/HCPCS: 10100